=== PATIENT | male | born 1945 | race Caucasian/White ===

== ENCOUNTER 2016-08-22 20:29 | Emergency (ER) | payer MEDICARE ==
[2016-08-22 20:45] VITALS: BP 144/76
--- NOTE | 2016-08-22 22:34 | ED ---
Homa Lovelace Auryana, scribed for Chana Fernandes MD on 08/22/16 at 2121 . Laceration/Wound HPI - HPI Summary HPI Summary: 71 year old male presents with right sided lip laceration. Ilan reports that he was on the tractor at 07:30 PM when a branch got caught and flew back, lacerating his lip. Patient denies any LOC or any other complaints today. PMHx is significant for HTN and stroke (2009). FHx is not significant for HTN. SHx is not significant for tobacco, alcohol, or any drugs. PCP is Dr. CHIRAG Last. - History of Current Complaint Stated Complaint: LIP LAC, EYE LAC Time Seen by Provider: 08/22/16 20:44 Hx Obtained From: Patient Mechanism of Injury: Other - tree falling Onset/Duration: Sudden Onset Timing: Constant Onset Severity: Mild Current Severity: Mild Pain Intensity: 0 Pain Scale Used: 0-10 Numeric Associated Signs & Symptoms: Negative PMH/Surg Hx/FS Hx/Imm Hx Infectious Disease History: No Infectious Disease History: Denies: Traveled Outside the [place] in Last 30 Days - Family History Known Family History: Negative: Hypertension - Social History Occupation: Retired Lives: With Family Alcohol Use: None Substance Use Type: Reports: None Smoking Status (MU): Former Smoker Review of Systems Constitutional: Negative Negative: Fever Eyes: Negative ENT: Negative Cardiovascular: Negative Respiratory: Negative Gastrointestinal: Negative Genitourinary: Negative Musculoskeletal: Negative Positive: Other - lip laceration Neurological: Negative Psychological: Normal All Other Systems Reviewed And Are Negative: Yes Physical Exam - Summary Physical Exam Summary: General: Well appearing, no pain distress Skin: Warm, Skin Color Reflects Adequate Perfusion, Dry. Right sided lip laceration - full thickness. Abrasion below the left eye. Eyes: EOMI, SUMMER ENT: Pharynx normal, TMs normal Neck: Supple, nontender Respiratory: CTA, breath sounds present, no rhonchi, no wheezes, no rales Cardiovascular: RRR, no murmur, no rub, no gallop Abdomen: Soft, nontender, Non-distended, no guarding, no rebound Bowel: Present Musculoskeletal: LETICIA, No edema Neuro: Sensory/motor intact, A&Ox3, CN intact 2-12 Psych: Affect/mood appropriate Triage Information Reviewed: Yes Vital Signs On Initial Exam: Initial Vitals Temp Pulse Resp BP Pulse Ox 97.7 F 56 16 144/76 98 08/22/16 20:36 08/22/16 20:36 08/22/16 20:36 08/22/16 20:36 08/22/16 20:36 Vital Signs Reviewed: Yes - [place] Coma Scale Coma Scale Total: 15 Procedures - Laceration/Wound Repair right side lip Location: face - lip right side Description: Linear Length, Depth and Shape: full thickness Irrigated w/ Saline (ccs): 250 - cc of normal saline Laceration/Wound Explored: clean Closure: Multilayer Debridement: minimal Number of Sutures: 11 Layer Closure?: Yes - 7 (4-0) internal absorbable sutures, and 4 (6-0)external absorbable sutures Diagnostics - Vital Signs Vital Signs Temp Pulse Resp BP Pulse Ox 08/22/16 20:36 97.7 F 56 16 144/76 98 - Laboratory Lab Statement: Any lab studies that have been ordered have been reviewed, and results considered in the medical decision making process. Laceration Repair Course/Dx - Course Course Of Treatment: 71 yo male hit in the face by a branch that was kicked up by the mower. Pt sustained complex laceration of upper lip requiring both inner and external sutures. Pt to followup with Dr. Last for removal of the 4 external sutures. Pt given peridex swish - Clinical Impression Provider Diagnoses: Lip laceration Discharge - Discharge Plan Condition: Stable Disposition: HOME Prescriptions: Chlorhexidine MOUTHWASH 0.12%* [Peridex Mouth Wash 0.12%*] 473 ml .SEE ORDER BID #[id number] oral.soln Patient Education Materials: Laceration (ED), Care For Your Stitches (ED) Referrals: Chirag Last MD [Primary Care Provider] - 2 Days Additional Instructions: Please have your stitches removed in 7-10 days. The documentation as recorded by the Homa watters Auryana accurately reflects the service I personally performed and the decisions made by me, Chana Fernandes MD.
== END 2016-08-22 22:50 | disposition home or self-care (01) ==
LOC: ED 20:29
DX: S01.511A Laceration without foreign body of lip, initial encounter (principal); W22.8XXA Striking against or struck by other objects, initial encounter; Y92.9 Unspecified place or not applicable; I10 Essential (primary) hypertension; Z86.73 Personal history of transient ischemic attack (TIA), and cerebral infarction without residual deficits; Z87.891 Personal history of nicotine dependence
CPT/HCPCS: 12011; 99282

== ENCOUNTER 2019-01-21 09:02 | Day surgery (SDC) | payer MEDICARE ==
[~2019-01-21 09:02] MED LIST: Buffered Lidocaine 1% SYRIN* 1 ML/SYRINGE INTRADERM ONE
[2019-01-21] MEDS ORDERED: Midazolam* 1 MG/ML 2 ML VIAL (2 MG) ONE (10:02)
[2019-01-21] MEDS ORDERED: Phenylephr/Ketorolac 1%/0.3% OPH DROP BTL ONE (10:27)
[2019-01-21 11:57] VITALS: BP 109/60
--- NOTE | 2019-01-21 12:16 | OP ---
OPERATIVE REPORT: DATE OF OPERATION: 01/21/19 DATE OF : 47 SURGEON: Gerry Conrad MD. DESIGN ENGINEERING TECHNICIAN: None. ANESTHESIA: Topical with intravenous sedation. PRE-OP DIAGNOSIS: Cataract, left eye, with small pupil. POST-OP DIAGNOSIS: Cataract, left eye, with small pupil. OPERATIVE PROCEDURE: Phacoemulsification and cataract extraction with posterior chamber intraocular lens implant, left eye, and Malyugin ring, left eye. COMPLICATIONS: None. BLOOD LOSS: None. OPERATIVE FINDINGS: The patient was brought to the operating room and received intravenous sedation. A drop of Tetracaine was placed in his left eye. The patient was prepped and draped in the usual s terile fashion for ophthalmic surgery and attention was directed to the left eye, where a speculum wa s placed. It was noted that, despite appropriate preoperative dilating drops, the pupil measured onl y 3 mm in diameter. Omidria was added to the irrigating solution with the hope that visco dilation w ould be adequate. A paracentesis was created at the 5:30 position and 0.1 cc of 1% preservative-free lidocaine was injected into the anterior chamber followed by DisCoVisc. The eye was digitally stabi lized while a 2.75 mm keratome was used to create a triplanar clear corneal incision at the 3 o'clock position. It was noted that the viscoelastic was unable to dilate the pupil adequately. A Malyugin ring was opened and inserted into the eye. It was used to capture 4 clock hours of pupil and provid e appropriate dilation for the remainder of the surgery. A continuous curvilinear capsulorrhexis was created with a cystotome and Utrata forceps. BSS on a cannula was used to hydrodissect the lens fro m the capsule. Phacoemulsification was performed in a xndklo-ucc-dcyvppn technique to create 4 fragm ents, which were removed. Residual cortical material was removed with irrigation and aspiration. Th e capsule bag was polished. DisCoVisc was used to inflate the capsule bag. An AU00T0 17.5 diopter le ns was inserted into the capsular bag. DisCoVisc was removed from posterior to the intraocular lens. Supplemental DisCoVisc was placed anterior to the intraocular lens. The Malyugin ring was atraumat ically removed from the iris and then from the eye. Residual viscoelastic was removed with irrigatio n and aspiration. BSS on a cannula was used to hydrate the corneal stroma and seal the wound. At th e end of the case, the pupil was round and measured approximately 3.5 mm. The eye pressure appeared normal. The wound was watertight and the lens was centered. The speculum was removed and topical Ma xitrol ointment was placed on the surface of the eye. The eye was closed, patched and shielded, and t he patient was sent to the recovery room in stable condition with postoperative instructions and foll owup appointment given. [id number]/[facility] #: [id number]
[2019-01-21] MEDS ORDERED: Lidocaine 1% MPF ** 5 ML VIAL ONE (16:09)
[2019-01-21] MEDS ORDERED: Tetracaine 0.5% OPTH.SOL 4 ML* 1 DROP BTL ONE (16:09)
[2019-01-21] MEDS ORDERED: Neomycin/Polymy/Dex OPHTH.OIN* 3.5 GM ONE (16:09)
[2019-01-21] MEDS ORDERED: Phenylephrine OPHTH SOL 2.5%* 2 ML ONE (16:09)
[2019-01-21] MEDS ORDERED: Tropicamide 1% OPTH.SOL* BTL ONE (16:09)
[2019-01-21] MEDS ORDERED: Cyclopentolate 1% OPTH.SOL* 2 ML BTL ONE (16:09)
[2019-01-21] MEDS ORDERED: Ketorolac 0.5% OPHTH (NF) 0.5 % 5 ML BTL ONE (16:10)
== END 2019-01-21 10:50 | disposition home or self-care (01) ==
LOC: OREAST 09:02
PROVIDERS: ATTEND Ophthalmology
DX: H25.12 Age-related nuclear cataract, left eye (principal); H21.562 Pupillary abnormality, left eye; I10 Essential (primary) hypertension; C61 Malignant neoplasm of prostate; Z86.73 Personal history of transient ischemic attack (TIA), and cerebral infarction without residual deficits; G40.89 Other seizures; E78.00 Pure hypercholesterolemia, unspecified
CPT/HCPCS: A9270-GY; J1097; J2250; V2632

== ENCOUNTER 2019-01-28 08:58 | Day surgery (SDC) | payer MEDICARE ==
[2019-01-28] MEDS ORDERED: Midazolam* 1 MG/ML 2 ML VIAL (2 MG) ONE (10:02)
[2019-01-28 10:52] VITALS: BP 118/61
[2019-01-28] MEDS ORDERED: Tropicamide 1% OPTH.SOL* BTL ONE (13:37)
[2019-01-28] MEDS ORDERED: Phenylephrine OPHTH SOL 2.5%* 2 ML ONE (13:37)
[2019-01-28] MEDS ORDERED: Ketorolac 0.5% OPHTH (NF) 0.5 % 5 ML BTL ONE (13:37)
[2019-01-28] MEDS ORDERED: Neomycin/Polymy/Dex OPHTH.OIN* 3.5 GM ONE (13:37)
[2019-01-28] MEDS ORDERED: Lidocaine 1% MPF ** 5 ML VIAL ONE (13:37)
[2019-01-28] MEDS ORDERED: Cyclopentolate 1% OPTH.SOL* 2 ML BTL ONE (13:37)
[2019-01-28] MEDS ORDERED: Tetracaine 0.5% OPTH.SOL 4 ML* 1 DROP BTL ONE (13:37)
[2019-01-28] MEDS ORDERED: Phenylephr/Ketorolac 1%/0.3% OPH DROP BTL ONE (13:38)
--- NOTE | 2019-01-28 14:38 | OP ---
DATE OF OPERATION: 01/28/19 [facility] DATE OF : 47 SURGEON: Gerry Conrad MD BATTERY CHECKER: None. ANESTHESIA: Topical with intravenous sedation. PRE-OP DIAGNOSIS: Cataract, right eye, with small pupil. POST-OP DIAGNOSIS: Cataract, right eye, with small pupil. OPERATIVE PROCEDURE: Phacoemulsification and cataract extraction with posterior chamber intraocular lens implant, right eye, and Malyugin ring and Omidria right eye. COMPLICATIONS: None. BLOOD LOSS: None. DESCRIPTION OF PROCEDURE: The patient was brought to the operating room and received intravenous sedation. A drop of Tetracaine was placed in his right eye. The patient was prepped and draped in the usual sterile fashion for ophthalmic surgery and attention was directed to the right eye, where a speculum was placed. A paracentesis was created at the 11 o'clock position and 0.1 cc of 1% preservative- free lidocaine was injected into the anterior chamber followed by DisCoVisc. The eye was digitally stabilized while a 2.75 mm keratome was used to create a triplanar clear corneal incision at the 9 o'clock position. It was noted that the pupil measured approximately 3.5 mm and would not become larger with the viscodilation. A Malyugin ring was then opened and inserted into the eye capturing the pupil in 4 o'clock hours. A continuous curvilinear capsulorrhexis was created with a cystotome and Utrata forceps. BSS on a cannula was used to hydrodissect the lens from the capsule. Phacoemulsification was performed in a divide-and- conquer technique to create 4 fragments, which were removed. Residual cortical material was removed with irrigation and aspiration. The capsule bag was polished. DisCoVisc was used to inflate the capsule bag. An AU00T0 17.0 diopter lens was inserted into the capsular bag. DisCoVisc was removed from posterior to the lens. DisCoVisc was then added anterior to the lens. The Malyugin ring was disengaged from the pupil and atraumatically removed from the eye. Residual DisCoVisc was removed using irrigation and aspiration. BSS on a cannula was used to hydrate the corneal stroma and seal the wound. Omidria had been used in the irrigating solution. At the end of the case, the pupil was round and measured approximately 4 mm. The lens was centered and stable. The eye pressure appeared normal and the wound was watertight. The speculum was removed and topical Maxitrol ointment was placed on the surface of the eye. The eye was closed, patched, and shielded, and the patient was sent to the recovery room in stable condition with postoperative instructions and followup appointment given. [id number]/[facility] #: [id number] MTDD
== END 2019-01-28 10:48 | disposition home or self-care (01) ==
LOC: OREAST 08:58
PROVIDERS: ATTEND Ophthalmology
PROC: 08RJ3JZ Replacement of Right Lens with Synthetic Substitute, Percutaneous Approach (ICD-10-PCS; principal; 2019-01-28 10:00)
DX: H25.11 Age-related nuclear cataract, right eye (principal); I10 Essential (primary) hypertension; G40.909 Epilepsy, unspecified, not intractable, without status epilepticus; Z86.73 Personal history of transient ischemic attack (TIA), and cerebral infarction without residual deficits
CPT/HCPCS: A9270-GY; J1097; J2250; V2632